=== PATIENT | female | born 1985 | race Caucasian/White ===

== ENCOUNTER 2025-02-28 09:27 | Outpatient (CLI) | payer OTHER, SELFPAY ==
--- NOTE | ~2025-02-28 | MMUS_ITS ---
EXAMINATION: MM diagnostic kayy BI w [facility], US breast LT limited HISTORY: Left breast lump TECHNIQUE: 3-D tomosynthesis images of the breasts were performed and synthetic 2-D images were gener ated. CAD analysis was submitted and interpreted. High resolution limited left breast ultrasound was performed. COMPARISON: None BREAST PARENCHYMAL COMPOSITION:Not Dense. There are scattered areas of fibroglandular density. FINDINGS: MAMMOGRAPHIC FINDINGS: No suspicious mammographic abnormality seen. Small intramammary lymph node in the left breast. No cande picious mass or distortion. No suspicious microcalcification. ULTRASOUND: Sonographic imaging of the 8:00 position left breast demonstrates no solid or cystic abnormality. No sonographic or is seen at the area of clinical concern. IMPRESSION: No evidence for malignancy. No mammographic or sonographic correlate seen at the area of clinical co ncern at the 8:00 position left breast. BI-RADS Category 1: Negative Reviewed, dictated and finalized at [facility]. IMPRESSION: No evidence for malignancy. No mammographic or sonographic correlate seen at [facility] area of clinical concern at the 8:00 position left breast. BI-RADS Category 1: Negative
== END 2025-02-28 09:28 | disposition home or self-care (01) ==
LOC: MICIMG 09:29
PROVIDERS: PCP Internal Medicine; Visit Provider Student in an Organized Health Care Education/Training Program
DX: N64.4 Mastodynia (principal)
CPT/HCPCS: 76642; 77062; 77066; G0279